=== PATIENT | female | born 1980 | race Caucasian/White ===

== ENCOUNTER → 2016-06-30 | Outpatient (CLI) | payer OTHER ==
--- NOTE | 2016-07-01 11:58 | RESP ---
DATE OF SERVICE: 06/30/2016 The patient underwent full pulmonary function testing on 06/30/2016. The FEV1 to FVC ratio was 84%. FEV1 was 94% of predicted at 2.57 liters. FVC was 88% of predicted at 2.87 liters. Total lung capacity was preserved. Diffusion capacity was preserved. Residual volume was slightly elevated. IMPRESSION: 1. No significant airflow limitation. 2. Mild airway trapping. 3. Preserved diffusion capacity. 4. No evidence of restrictive disorder. NICOLÁS BUCKLEY MD DR: KAE/radha JOB#: [id number] / [id number] BRIAN Covarrubias MD
== END | disposition home or self-care (01) ==
LOC: PF 07:47
PROVIDERS: ATTEND Internal Medicine Cardiovascular Disease
DX: R06.02 Shortness of breath (principal)
CPT/HCPCS: 94010; 94729

== ENCOUNTER → 2016-07-18 | Outpatient (CLI) | payer OTHER ==
--- NOTE | 2016-07-18 13:09 | CARD ---
APPROVED REPORT EXAM: Two-dimensional and M-mode echocardiogram with Doppler and color Doppler. Other Information Quality : Average Rhythm : NSR INDICATION Dyspnea 2D DIMENSIONS RVDd2.1 (2.9-3.5cm)Left Atrium(2D)2.9 (1.6-4.0cm) IVSd0.7 (0.7-1.1cm)Aortic Root(2D)2.1 (2.0-3.7cm) LVDd4.2 (3.9-5.9cm)LVOT Diameter1.9 (1.8-2.4cm) PWd0.7 (0.7-1.1cm)LVDs2.5 (2.5-4.0cm) FS (%) 31.4 %SV56.9 ml LVEF(%)62.7 (>50%) Aortic Valve AoV Peak Ricky.117.3cm/sAoV VTI23.8cm AO Peak GR.5.5mmHgLVOT Peak Ricky.104.9cm/s LVOT VTI 20.85cmAO Mean GR.3mmHg EFREN (VMAX)2.50gc3CNL (VTI)2.44cm2 Mitral Valve MV E Kvopaosm49.4cm/sMV DECEL [id number] MV A Arwwbpih21.5cm/sMV E Mean Gr.2mmHg MV WQS33asJ/A Ratio1.6 MV A Zqedbgnq441scNQU (PHT)4.21cm2 TDI E/Lateral E'5.0E/Medial E'6.5 Pulmonary Valve PV Peak Yfpqtljb68.6cm/sPV Peak Grad.4mmHg RVOT VTI21.8cm Tricuspid Valve TR P. Wvxynyeo136vh/sRAP PDGCFYAY3vsEb TR Peak Gr.02umAiWHOJ65dkTj Pulmonary Vein S1 Njhkwuax41.4cm/sD2 Lyvesiza31.6cm/s LEFT VENTRICLE The left ventricle is normal size. There is normal left ventricular wall thickness. Left ventricle sy stolic function is normal. The Ejection Fraction is 55%. There is normal LV segmental wall motion. Th e left ventricular diastolic function and filling is normal for age. There is no ventricular septal d efect visualized. RIGHT VENTRICLE The right ventricle is normal size. The right ventricular systolic function is normal. ATRIA The left atrium size is normal. The right atrium size is normal. The interatrial septum is intact wit h no evidence for an atrial septal defect or patent foramen ovale as noted on 2-D or Doppler imaging. AORTIC VALVE The aortic valve is normal in structure and function. The aortic valve is trileaflet. Doppler and Col or Flow revealed no significant aortic regurgitation. There is no significant aortic valvular stenosi s. MITRAL VALVE The mitral valve is normal in structure and function. There is no evidence of mitral valve prolapse. There is no mitral valve stenosis. Doppler and Color Flow revealed no mitral valve regurgitation note d. TRICUSPID VALVE The tricuspid valve is normal in structure and function. Doppler and Color Flow revealed mild tricusp id regurgitation. The PA pressure was estimated at 27 mmHg. There is no tricuspid valve stenosis. PULMONIC VALVE The pulmonary valve is normal in structure and function. Doppler and Color Flow revealed trace pulmon ic valvular regurgitation. There is no pulmonic valvular stenosis. GREAT VESSELS The aortic root is normal in size. Normal pulmonary venous flow (Doppler). The IVC is normal in size and collapses >50% with inspiration. PERICARDIAL EFFUSION There is no evidence of significant pericardial effusion. Critical Notification Critical Value: No <Conclusion> Left ventricle systolic function is normal. The Ejection Fraction is 55%. There is normal LV segmental wall motion. No significant valvular disease.
== END | disposition home or self-care (01) ==
LOC: ECHO 10:53 → EDUNIT# 11:00
PROVIDERS: ATTEND Internal Medicine Cardiovascular Disease
DX: I07.1 Rheumatic tricuspid insufficiency (principal); R06.00 Dyspnea, unspecified
CPT/HCPCS: 93306